=== PATIENT | male | born 1960 | race Hispanic/Latino ===

== ENCOUNTER 2017-09-18 07:29 | Day surgery (SDC) | payer OTHER ==
[~2017-09-18] VITALS: Ht 167.6 cm; Wt 82.6 kg
[~2017-09-18 07:29] MED LIST: ASPI-555 PO; ATOR20TA65 PO; SODIUM CHLORIDE 0.9% 1000ML 1,000 ML IV ONE
[2017-09-18 08:12] VITALS: BP 123/76
[2017-09-18] MEDS ORDERED: PROPOFOL 10 MG/ML 20ML VIAL IV ONE (09:10)
[2017-09-18 09:25] VITALS: BP 103/45
[2017-09-18 09:29] VITALS: BP 96/55
== END 2017-09-18 10:00 | disposition home or self-care (01) ==
LOC: DAH 07:29
PROVIDERS: ATTEND Internal Medicine Gastroenterology
DX: Z12.11 Encounter for screening for malignant neoplasm of colon (principal); I10 Essential (primary) hypertension; E78.5 Hyperlipidemia, unspecified; G47.33 Obstructive sleep apnea (adult) (pediatric); Z79.899 Other long term (current) drug therapy; I25.10 Atherosclerotic heart disease of native coronary artery without angina pectoris; K57.30 Diverticulosis of large intestine without perforation or abscess without bleeding
CPT/HCPCS: 45378; A4606; J2704; J7030